=== PATIENT | male | born 2000 | race Two or more races ===

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

== ENCOUNTER 2020-10-06 11:26 | Emergency (ER) | payer OTHER ==
[~2020-10-06] VITALS: Ht 180.3 cm; Wt 88.6 kg
[2020-10-06] MEDS ORDERED: BOOSTRIX/ADACEL VACCINE (DIPHTH/PERTUSS/ACELL/TETANUS) 0.5ML SYR IM ONE (12:00)
[2020-10-06] MEDS ORDERED: LIDOCAINE 1% MDV 20ML VIAL IM ONE (12:05)
--- NOTE | 2020-10-06 12:21 | REP ---
INDICATION: traumar. COMPARISON: None TECHNIQUE: Four views FINDINGS: There is no acute fracture, dislocation, subluxation, or joint effusion. There is evidence of a soft tissue laceration in the upper forearm soft tissues medially. There is no evidence of a radiopaque foreign body. IMPRESSION: As above. <Electronically signed by Andrei Byrnes > 10/06/20 [id number]
[2020-10-06 13:31] VITALS: BP 142/87
== END 2020-10-06 13:41 | disposition home or self-care (01) ==
LOC: M ED 11:26
DX: S51.811A Laceration without foreign body of right forearm, initial encounter (principal); W26.8XXA Contact with other sharp object(s), not elsewhere classified, initial encounter; Y99.0 Civilian activity done for income or pay; Y92.9 Unspecified place or not applicable; Y93.9 Activity, unspecified

== ENCOUNTER 2020-10-15 09:07 | Emergency (ER) | payer OTHER ==
[~2020-10-15] VITALS: Ht 180.3 cm; Wt 86.4 kg
[2020-10-15 09:10] VITALS: BP 134/70
== END 2020-10-15 10:05 | disposition home or self-care (01) ==
LOC: M ED 09:07
DX: Z48.02 Encounter for removal of sutures (principal)

== ENCOUNTER 2022-12-14 05:40 | Emergency (ER) | payer OTHER ==
[~2022-12-14] VITALS: Ht 180.3 cm; Wt 81.1 kg
[2022-12-14] MEDS ORDERED: ADDE20CA3 PO (05:46)
[2022-12-14] MEDS ORDERED: KETOROLAC 30 MG/ML 1ML VIAL IV ONE (05:55)
[2022-12-14 06:12] LABS: BASO # 0.1 10^3/uL (0.0-0.2); BASO % 0.5 % (0.0-1.0); EOS # 0.1 10^3/uL (0.0-0.5); HEMATOCRIT 43.9 % (42.0-52.0); LYMPH # 1.1 10^3/uL (1.5-5.0); LYMPH % 9.6 % (24.0-44.0); MEAN CORPUSCULAR HEMOGLOBIN 29.4 pg (27.0-33.0); MEAN CORPUSCULAR HGB CONC 34.2 g/dl (32.0-36.5); MEAN CORPUSCULAR VOLUME 86.1 fl (80.0-96.0); MONO # 1.2 10^3/uL (0.0-0.8); MONO % 10.8 % (2.0-8.0); NEUTROPHILS # 8.9 10^3/uL (1.5-8.5); NEUTROPHILS % 77.8 % (36.0-66.0); PLATELET COUNT, AUTOMATED 197 10^3/uL (150-450); WHITE BLOOD COUNT 11.5 10^3/uL (4.0-10.0)
[2022-12-14] MEDS ORDERED: ISOVUE-370 76% 100ML VIAL As Ordered ONE (06:19)
[2022-12-14 06:42] LABS: LIPASE 25 U/L (12-53)
[2022-12-14 06:45] LABS: ALBUMIN 4.2 G/DL (3.2-5.2); ALKALINE PHOSPHATASE 57 U/L (46-116); ALT/SGPT 13 U/L (7.0-40); AST/SGOT < 8 U/L (<34); BILIRUBIN,DIRECT 0.3 MG/DL (<0.4); BLOOD UREA NITROGEN 17 MG/DL (9-23); CALCIUM LEVEL 9.4 MG/DL (8.5-10.1); CARBON DIOXIDE LEVEL 27 MMOL/L (20-31); CHLORIDE LEVEL 104 MMOL/L (98-107); CREATININE FOR GFR 1.01 MG/DL (0.70-1.30); GLOMERULAR FILTRATION RATE > 60.0 (>60); GLUCOSE, FASTING 99 MG/DL (60-100); SODIUM LEVEL 139 MMOL/L (136-145)
[2022-12-14] MEDS ORDERED: ONDANSETRON 4MG 2ML VIAL IV ONE (08:05)
[2022-12-14] MEDS ORDERED: AUGMENTIN 875 MG TAB PO ONE (08:05)
[2022-12-14] MEDS ORDERED: AMOX875T2 PO (08:09)
[2022-12-14] MEDS ORDERED: ONDA4TAB6 PO (08:09)
[2022-12-14 08:55] VITALS: BP 130/61; TEMP 98.1; O2SAT 100
== END 2022-12-14 08:57 | disposition home or self-care (01) ==
LOC: M ED 05:40
DX: K57.32 Diverticulitis of large intestine without perforation or abscess without bleeding (principal); R93.2 Abnormal findings on diagnostic imaging of liver and biliary tract; Z79.2 Long term (current) use of antibiotics; Z79.83 Long term (current) use of bisphosphonates
CPT/HCPCS: 74177; 80048; 80076; 81001; 83690; 85025; 96374; 99284; J1885; Q9967

== ENCOUNTER → 2022-12-19 | Outpatient (REF) | payer OTHER ==
[~2022-12-19] MED LIST: ADDE20CA3 PO; AMOX875T2 PO; ONDA4TAB6 PO
[2022-12-21 16:12] LABS: EBV AB TO NUCLEAR ANTIGEN <18.0 U/mL (0.0-17.9); EBV VIRAL CAPSID AG IgG <18.0 U/mL (0.0-17.9); EBV VIRAL CAPSID AG IgM <36.0 U/mL (0.0-35.9)
== END ==
LOC: M LAB REF 12:13
PROVIDERS: ATTEND Physician Assistant Medical
DX: R16.1 Splenomegaly, not elsewhere classified (principal); R93.2 Abnormal findings on diagnostic imaging of liver and biliary tract; K57.32 Diverticulitis of large intestine without perforation or abscess without bleeding

== ENCOUNTER → 2023-01-03 | Outpatient (CLI) | payer OTHER ==
[~2023-01-03] MED LIST changes: +PROHANCE 279.3MG/ML 15ML VIAL ONE
== END ==
LOC: M PLAIMG 08:54
PROVIDERS: ATTEND Physician Assistant Medical
DX: R93.2 Abnormal findings on diagnostic imaging of liver and biliary tract (principal)
CPT/HCPCS: 74183; A9576

== ENCOUNTER 2023-10-15 09:00 | Day surgery (SDC) | payer OTHER ==
[~2023-10-15] VITALS: Ht 180.3 cm; Wt 85.4 kg
[~2023-10-15 09:00] MED LIST changes: -PROHANCE 279.3MG/ML 15ML VIAL ONE
[2023-10-15] MEDS: NS 1,000 ML IV ONE (09:12)
[2023-10-15] MEDS ORDERED: propofoL 200 MG/20 ML VIAL As Ordered ONE (09:57)
[2023-10-15 10:30] VITALS: BP 117/63; TEMP 97.9; O2SAT 99
== END 2023-10-15 10:30 | disposition home or self-care (01) ==
LOC: M OPP 09:00
PROVIDERS: ATTEND Internal Medicine Gastroenterology
DX: K57.30 Diverticulosis of large intestine without perforation or abscess without bleeding (principal); K57.32 Diverticulitis of large intestine without perforation or abscess without bleeding; K64.8 Other hemorrhoids; R93.3 Abnormal findings on diagnostic imaging of other parts of digestive tract; F17.290 Nicotine dependence, other tobacco product, uncomplicated; Z79.899 Other long term (current) drug therapy

== ENCOUNTER → 2024-05-25 | Outpatient (CLI) | payer OTHER ==
[~2024-05-25] MED LIST changes: +ONDA-282 PO; -ONDA4TAB6 PO; +PROHANCE 279.3MG/ML 15ML VIAL ONE; +PROHANCE 279.3MG/ML 5ML VIAL ONE
== END ==
LOC: M PLAIMG 07:17
PROVIDERS: ATTEND Internal Medicine
DX: D13.4 Benign neoplasm of liver (principal)